=== PATIENT | male | born 1995 | race American Indian/Alaskan Native ===

== ENCOUNTER 2019-01-08 23:42 | Emergency (ER) | payer OTHER ==
[2019-01-09 00:37] VITALS: BP 126/78
[2019-01-09 00:56] LABS: Basophils # (Auto) 0.1 K/mm3 (0.0-0.1); Basophils % (Auto) 0.5 % (0.0-1.8); Eosinophils # (Auto) 0.2 K/mm3 (0.0-0.4); Eosinophils % (Auto) 1.5 % (0.0-4.3); Hematocrit 47.3 % (35.5-45.6); Hemoglobin 16.7 gm/dl (11.8-15.2); Lymphocytes # (Auto) 3.6 K/mm3 (1.2-5.4); Lymphocytes % (Auto) 30.4 % (13.4-35.0); Mean Corpuscular HGB Conc 35 % (32-34); Mean Corpuscular Hemoglobin 27 pg (28-32); Mean Corpuscular Volume 77 fl (84-94); Monocytes # (Auto) 0.9 K/mm3 (0.0-0.8); Monocytes % (Auto) 7.7 % (0.0-7.3); Platelet Count 253 K/mm3 (140-440); Red Blood Count 6.16 M/mm3 (3.65-5.03); Red Cell Distribution Width 15.7 % (13.2-15.2)
--- NOTE | 2019-01-09 01:12 | Emergency Department Report ---
ED Shortness of Breath HPI - General Chief Complaint: Dyspnea/Respdistress Stated Complaint: SOB LIGHTHEADED BODY WEAKNESS Time Seen by Provider: 01/09/19 00:48 Source: patient Mode of arrival: Ambulatory Limitations: No Limitations - History of Present Illness Initial Comments: 23-year-old obese male presents to the emergency room complaining has shortness of bleeding and lightheadedness with the cough that started last night. Patient poorly had cold-like symptoms for 1 week. Patient denies taking any OTC medications. He admits to runny nose and sneezing. Denies any fever or chills no nasal congestion no wheezing. Patient denies any chest pain no abdominal pain. Patient has no past medical history currently takes no medications on a daily basis in no known drug allergies. MD Complaint: shortness of breath, cough -: hour(s) (2 sob), week(s) (1 cold and cough) Context: recent URI - Related Data Previous Rx's Medication Instructions Recorded Last Taken Type Cetirizine HCl [Zyrtec] 10 mg PO QDAY #30 tablet 01/09/19 Unknown Rx Allergies Allergy/AdvReac Type Severity Reaction Status Date / Time No Known Allergies Allergy Unverified 01/09/19 00:10 ED Review of Systems ROS: Stated complaint: SOB LIGHTHEADED BODY WEAKNESS Other details as noted in HPI Comment: All other systems reviewed and negative ED Past Medical Hx - Past Medical History Previous Medical History?: No - Surgical History Past Surgical History?: No - Social History Smoking Status: Never Smoker Substance Use Type: None - Medications Home Medications: Home Medications Medication Instructions Recorded Confirmed Last Taken Type Cetirizine HCl [Zyrtec] 10 mg PO QDAY #30 tablet 01/09/19 Unknown Rx ED Physical Exam - General Limitations: No Limitations General appearance: alert, in no apparent distress, obese - Head Head exam: Present: atraumatic, normocephalic - Eye Eye exam: Present: EOMI - ENT ENT exam: Present: mucous membranes moist - Neck Neck exam: Present: normal inspection, full ROM - Respiratory Respiratory exam: Present: normal lung sounds bilaterally. Absent: respiratory distress, wheezes - Cardiovascular Cardiovascular Exam: Present: regular rate, normal rhythm. Absent: systolic murmur, diastolic murmur, rubs, gallop - GI/Abdominal GI/Abdominal exam: Present: soft, normal bowel sounds. Absent: distended, tenderness - Extremities Exam Extremities exam: Present: normal inspection, full ROM - Neurological Exam Neurological exam: Present: alert, oriented X3, normal gait - Psychiatric Psychiatric exam: Present: normal affect, normal mood - Skin Skin exam: Present: warm, dry, intact, normal color. Absent: rash ED Course Vital Signs 01/09/19 01/09/19 01/09/19 00:10 00:32 00:36 Temperature 98.1 F Pulse Rate 97 H 89 84 Respiratory 18 17 17 Rate Blood Pressure 216/201 Blood Pressure 126/84 126/78 [Left] O2 Sat by Pulse 96 99 Oximetry ED Medical Decision Making - Lab Data Result diagrams: 01/09/19 00:23 Critical care attestation.: If time is entered above; I have spent that time in minutes in the direct care of this critically ill patient, excluding procedure time. ED Disposition Clinical Impression: Obesity (BMI 35.0-39.9 without comorbidity) Allergic rhinitis Qualifiers: Allergic rhinitis trigger: pollen Allergic rhinitis seasonality: seasonal Qualified Code(s): J30.1 - Allergic rhinitis due to pollen Disposition: DC-01 TO HOME OR SELFCARE Is pt being admited?: No Does the pt Need Aspirin: No Condition: Stable Instructions: Allergic Rhinitis (ED), Obesity (ED) Additional Instructions: Please take medication as prescribed. Please increase her water intake while taking medication. Follow-up with her primary care provider if his symptoms persist or gets worse. Prescriptions: Cetirizine HCl [Zyrtec] 10 mg PO QDAY #30 tablet Referrals: EFRAÍN FARIAS MD [Referring] - 3-5 Days
[2019-01-09 01:22] LABS: Alanine Aminotransferase 55 units/L (7-56); Albumin 4.1 g/dL (3.9-5); BUN/Creatinine Ratio 16; Blood Urea Nitrogen 14 mg/dL (9-20); Calcium 9.3 mg/dL (8.4-10.2); Hemolysis Index 14
== END 2019-01-09 01:30 | disposition home or self-care (01) ==
LOC: ED 23:42
DX: J30.1 Allergic rhinitis due to pollen (principal); E66.9 Obesity, unspecified; Z68.42 Body mass index [BMI] 45.0-49.9, adult
CPT/HCPCS: 36415; 80053; 85025; 99283